=== PATIENT | female | born 1995 | race Caucasian/White ===

== ENCOUNTER 2020-01-19 02:44 | Emergency (ER) | payer MEDICAID ==
[~2020-01-19] VITALS: Ht 160 cm; Wt 68.0 kg
[2020-01-19 02:50] VITALS: BP_SYST 136
[2020-01-19 05:34] VITALS: BP_SYST 130
== END 2020-01-19 05:34 | disposition home or self-care (01) ==
LOC: SED 02:44
DX: O12.05 Gestational edema, complicating the puerperium (principal)
CPT/HCPCS: 93971; 99284